=== PATIENT | male | born 1990 | race African-American/Black ===

== ENCOUNTER 2019-05-15 03:46 | Emergency (ER) | payer SELFPAY ==
[~2019-05-15] VITALS: Ht 185.4 cm; Wt 82.0 kg
[2019-05-15] MEDS ORDERED: IBUPROFEN 600MG TABLET PO ONE (06:45)
[2019-05-15 07:00] VITALS: BP 117/72
== END 2019-05-15 07:33 | disposition home or self-care (01) ==
LOC: ER 04:14
DX: J10.1 Influenza due to other identified influenza virus with other respiratory manifestations (principal); F12.10 Cannabis abuse, uncomplicated; J45.909 Unspecified asthma, uncomplicated
CPT/HCPCS: 71045; 87804; 99284